=== PATIENT | male | born 1995 | race African-American/Black ===

== ENCOUNTER 2017-07-30 05:34 | Day surgery (SDC) | payer BC ==
[~2017-07-30] VITALS: Ht 193 cm; Wt 88.5 kg
[~2017-07-30 05:34] MED LIST: DOXYCYCLINE 10100 MG PO; ERYTHROMYCIN E3.5 G1 OPHTHALMIC; IBUPROFEN 800800 M1 PO; NOHOMEMEDICATIONS; NORCO 5-325 TA1 EACH PO; PHENERGAN 25 MG25 M1 PO; TOBRADEX EYE O3.5 GM OPHTHALMIC; VENTOLIN HFA 1818 GM INH
[2017-07-30 09:40] VITALS: BP 118/61
[2017-07-30] MEDS ORDERED: HYDROCODONE-AP1 EAC6 PO (11:06)
[2017-10-20] MEDS ORDERED: SEROQUEL 25 MG25 M1 PO (02:05)
== END 2017-07-30 14:00 | disposition home or self-care (01) ==
LOC: OR 05:34 → TBA 05:34 → OR 10:59
DX: S71.042A Puncture wound with foreign body, left hip, initial encounter (principal); Z79.891 Long term (current) use of opiate analgesic; W34.09XA Accidental discharge from other specified firearms, initial encounter; Y93.89 Activity, other specified; Y92.89 Other specified places as the place of occurrence of the external cause; Y99.8 Other external cause status
CPT/HCPCS: 50010; 50101; 50386; 50403